=== PATIENT | female | born 1990 | race Caucasian/White ===

== ENCOUNTER 2021-09-29 07:51 | Emergency (ER) | payer OTHER ==
[~2021-09-29] VITALS: Ht 172.7 cm; Wt 59.0 kg
[~2021-09-29 07:51] MED LIST: BIRTH CONTROL PATCH; BIRTH CONTROL PILLS; HYDACE5 PO; ONDA8ODT MM; OXYACE5T PO; POLY500; PREN-16 PO
[2021-09-29 08:23] LABS: Source, Urine Clean Catch
[2021-09-29 08:26] LABS: BASOPHILS ABSOLUTE AUTO 0.02 K/mm3 (0.00-0.23); BASOPHILS PERCENT AUTO 0 % (0-2); EOSINOPHILS ABSOLUTE AUTO 0.05 K/mm3 (0.00-0.68); EOSINOPHILS PERCENT AUTO 1 % (0-6); Hematocrit 43.6 % (33.0-51.0); Hemoglobin 15.1 g/dL (11.5-16.0); IMMATURE GRAN ABSOLUTE AUTO 0.01 K/mm3 (0.00-0.10); IMMATURE GRAN PERCENT AUTO 0 % (0-1); LYMPHOCYTES ABSOLUTE AUTO 1.41 K/mm3 (0.84-5.20); LYMPHOCYTES PERCENT AUTO 22 % (21-46); MONOCYTES ABSOLUTE AUTO 0.35 K/mm3 (0.16-1.47); MONOCYTES PERCENT AUTO 5 % (4-13); Mean Corpuscular HGB 31.6 pg (26.0-34.0); Mean Corpuscular HGB Conc 34.6 g/dL (31.5-36.5); Mean Corpuscular Volume 91 fL (80-100); Mean Platelet Volume 10.3 fL (9.1-12.4); NEUTROPHILS ABSOLUTE AUTO 4.64 K/mm3 (1.96-9.15); NEUTROPHILS PERCENT AUTO 72 % (41-73); Platelet Count 196 K/mm3 (150-400); RDW Coefficient Variation 11.4 % (11.7-14.2); RDW Standard Deviation 38.4 fL (35.1-46.3); Red Blood Cell Count 4.78 M/mm3 (3.80-5.20); White Blood Cell Count 6.48 K/mm3 (4.00-11.30)
[2021-09-29 08:31] LABS: Appearance, Urine Clear (Clear); Bilirubin, Urine Neg (Neg); Blood, Urine Neg (Neg); Color, Urine Yellow (P-Yellow); Glucose Qualitative, Urine Neg (Neg); Ketones, Urine Neg (Neg); Leukocyte Esterase, Urine Neg (Neg); Nitrite, Urine Neg (Neg); Protein, Urine Neg (Neg); Urobilinogen, Urine NORM (Normal)
[2021-09-29 09:16] LABS: Alanine Aminotransfer (ALT/SGP 36 U/L (12-78); Albumin, Blood 4.5 g/dL (3.4-5.0); Albumin/Globulin Ratio 1.4 (0.8-1.8); Alk Phos 50 U/L (50-136); Anion Gap 7 mmol/L (6-16); Aspartate Aminotrans (AST/SGOT 16 U/L (12-37); Bilirubin, Total 0.7 mg/dL (0.1-1.0); Blood Urea Nitrogen 10 mg/dL (8-24); Bun/Creatinine Ratio 15.4 (12.0-20.0); CO2, Blood 25 mmol/L (21-32); Calcium, Blood 9.4 mg/dL (8.5-10.1); Chloride, Blood 105 mmol/L (98-108); Creatinine, Blood 0.65 mg/dL (0.40-1.00); Globulin, Blood 3.2 g/dL (2.2-4.0); Glomerular Filtration Rate >60 (60-); Glucose, Blood 106 mg/dL (70-99); Potassium, Blood 3.3 mmol/L (3.5-5.5); Sodium, Blood 137 mmol/L (136-145); Total Protein, Blood 7.7 g/dL (6.4-8.2)
== END 2021-09-29 13:12 | disposition home or self-care (01) ==
LOC: ER 07:51
PROVIDERS: Emergency Medicine
DX: N83.11 Corpus luteum cyst of right ovary (principal)
CPT/HCPCS: 36415; 74177; 80053; 81003; 81025; 83690; 85025; 96374-59; 96375; 99284-25; J1885; J2405; Q9967

== ENCOUNTER 2023-12-27 06:48 | Day surgery (SDC) | payer OTHER ==
[2023-12-27] VITALS (15 sets, daily range): BP systolic 107–128; BP diastolic 59–87
[~2023-12-27] VITALS: Ht 172.7 cm; Wt 57.4 kg
[~2023-12-27 06:48] MED LIST changes: +FentaNYL Citrate 50 MCG/ML 2 ML Injection ONE; +MULVITA PO; +Rocuronium Bromide 10 MG/ML 5ML Injection IV ONE; +VITAMIN D310 MC4 PO; +propofoL 20 ML IV ONE
--- NOTE | 2023-12-27 07:36 | NUR ---
Ambulatory in Day Surgery. History, Chart, Medications and Allergies reviewed before start of procedure.Patient confirms NPO status and agrees with scheduled surgery. Patient reports completing Chlorhexadine shower X2 prior to admission to hospital.
[2023-12-27] MEDS ORDERED: Lactated Ringer's 1,000 ML IV SCH ×2 (07:40→12:30)
[2023-12-27] MEDS ORDERED: Bupivacaine 0.5% HCl 5 MG/ML 30MLVIAL ONE (07:45)
[2023-12-27] MEDS ORDERED: Midazolam HCl 1MG / ML 2ML Vial IV ONE (08:00)
[2023-12-27] MEDS ORDERED: Cefazolin 2000MG/Dextrose,ISO 50 ML IV PRN (08:00)
[2023-12-27] MEDS ORDERED: Dexamethasone Sod Phos 10 MG/ML 1ML VIAL ONE (08:25)
[2023-12-27] MEDS ORDERED: Ondansetron HCl 2 MG / ML 2ML Vial ONE (08:25)
[2023-12-27] MEDS ORDERED: Rocuronium Bromide 10 MG/ML 5ML Injection IV ONE ×3 (08:45→11:10)
[2023-12-27] MEDS ORDERED: Glycopyrrolate 0.2 MG/ML 5ML VIAL ONE (08:49)
[2023-12-27] MEDS ORDERED: FentaNYL Citrate 50 MCG/ML 2 ML Injection IV PRN ×2 (08:55)
[2023-12-27] MEDS ORDERED: Metoclopramide HCl 5MG / ML 2ML Vial IV PRN (09:00)
[2023-12-27] MEDS ORDERED: HYDROmorphone HCl/Pf 1MG SYR IV PRN ×2 (09:00→12:25)
[2023-12-27] MEDS ORDERED: Ondansetron HCl 2 MG / ML 2ML Vial IV PRN ×2 (09:00→12:30)
[2023-12-27] MEDS ORDERED: Sugammadex Sodium 200 MG/2ML SDV (100 MG/ML) ONE (10:34)
[2023-12-27] MEDS ORDERED: Flumazenil 0.1 MG / ML 5ML Vial ONE (11:56)
[2023-12-27] MEDS ORDERED: HYDROmorphone HCl/Pf 1MG SYR ONE ×2 (12:13→12:29)
[2023-12-27] MEDS ORDERED: Promethazine HCl 12.5 MG Supp PR PRN (12:25)
[2023-12-27] MEDS ORDERED: Simethicone 80 MG Chew PO PRN (12:25)
[2023-12-27] MEDS ORDERED: FLU VACC QS2023-24(6MOS UP)/PF 60 MCG/0.5 ML SYRINGE IM SCH (12:25)
[2023-12-27] MEDS ORDERED: OxyCODONE 5 mg/Acetamin 325 mg TABLET PO PRN (12:25)
[2023-12-27] MEDS ORDERED: Promethazine HCl 25 MG Tab PO PRN (12:30)
[2023-12-27] MEDS ORDERED: Naloxone HCl 0.4MG / ML 1ML Vial IV PRN (12:30)
[2023-12-27] MEDS ORDERED: Ibuprofen 400 MG Tab PO PRN (12:30)
[2023-12-27] MEDS ORDERED: Ondansetron 4 MG TAB PO PRN (12:30)
[2023-12-27] MEDS ORDERED: CeFAZolin Sodium 2,000 MG in NS 50 ML IV SCH (14:15)
[2023-12-27] MEDS ORDERED: Ketorolac Tromethamine 30mg Vial IV SCH (18:00)
--- NOTE | 2023-12-27 19:30 | NUR ---
SHIFT SUMMARY PODO PRASANNA LAP HYSTER, A/OX4, VSS, TOLERATING PO, [facility] REMOVED ORDERED, CT PERFORMED ORDERED, PT PAIN HAS IMPROVED T/O THE SHIFT, TOLERATING CLEARS, VOIDING WELL. NO ACUTE EVENTS SINCE ARRIVING TO THE FLOOR. CALL LIGHT IN REACH.
--- NOTE | 2023-12-28 04:42 | NUR ---
SHIFT SUMMARY POD 1 LAP HYSTR c CERVIX & BILAT OVARY/FALLOPIAN REMOVAL, LYSIS OF ADHESIONS. NO ACUTE CHANGES OVERNIGHT. VS WNL FOR PT. TOLERATING CLEARS. AMBULATES SBA R/T LINES. TOILETS INDEPENDENTLY; SANGUINEOUS DRAINAGE ON HERRERA PADS (CHANGED 2X THIS SHIFT), VAGINAL PACKING IN PLACE. PT REPORTS NO PASSING OF FLATUS/ BM THIS SHIFT. PT REPORTS PAIN TOLERABLE, MEDICATED PER EMAR & NON-PHARM INTERVENTIONS IN USE. ANTICIPATED DISCHARGE LATER TODAY. CALL LIGHT WITHIN REACH, BED IN LOWEST POSITION, WILL REPORT TO DAY RN.
[2023-12-28 04:48] VITALS: BP 105/70
[2023-12-28 07:02] LABS: BASOPHILS ABSOLUTE AUTO 0.01 K/mm3 (0.00-0.23); BASOPHILS PERCENT AUTO 0 % (0-2); EOSINOPHILS ABSOLUTE AUTO 0.01 K/mm3 (0.00-0.68); EOSINOPHILS PERCENT AUTO 0 % (0-6); Hematocrit 36.5 % (33.0-51.0); Hemoglobin 12.7 g/dL (11.5-16.0); IMMATURE GRAN ABSOLUTE AUTO 0.02 K/mm3 (0.00-0.10); IMMATURE GRAN PERCENT AUTO 0 % (0-1); LYMPHOCYTES ABSOLUTE AUTO 1.37 K/mm3 (0.84-5.20); LYMPHOCYTES PERCENT AUTO 16 % (21-46); MONOCYTES ABSOLUTE AUTO 0.65 K/mm3 (0.16-1.47); MONOCYTES PERCENT AUTO 8 % (4-13); Mean Corpuscular HGB 31.9 pg (26.0-34.0); Mean Corpuscular HGB Conc 34.8 g/dL (31.5-36.5); Mean Corpuscular Volume 92 fL (80-100); Mean Platelet Volume 10.5 fL (9.1-12.4); NEUTROPHILS ABSOLUTE AUTO 6.54 K/mm3 (1.96-9.15); NEUTROPHILS PERCENT AUTO 76 % (41-73); Platelet Count 147 K/mm3 (150-400); RDW Coefficient Variation 11.7 % (11.7-14.2); RDW Standard Deviation 39.3 fL (35.1-46.3); Red Blood Cell Count 3.98 M/mm3 (3.80-5.20)
[2023-12-28 07:29] VITALS: BP 118/69
[2023-12-28 07:33] LABS: Albumin, Blood 3.2 g/dL (3.4-5.0); Albumin/Globulin Ratio 1.3 (0.8-1.8); Bun/Creatinine Ratio 11.7 (12.0-20.0); Calcium, Blood 8.3 mg/dL (8.5-10.1); Creatinine, Blood 0.6 mg/dL (0.40-1.00); Globulin, Blood 2.4 g/dL (2.2-4.0); Potassium, Blood 3.9 mmol/L (3.5-5.5); Total Protein, Blood 5.6 g/dL (6.4-8.2)
[2023-12-28 14:24] VITALS: BP 120/79
--- NOTE | 2023-12-28 15:05 | NUR ---
NOTE: PATIENT STARTED ON PO CONTRAST AT 1500 PER ORDER [address] SCHEDULED CT TO ABDOMEN AT 1600'S.
[2023-12-28] MEDS ORDERED: IBUP800 PO (17:03)
[2023-12-28] MEDS ORDERED: ERGO400 PO (17:03)
[2023-12-28] MEDS ORDERED: Percocet 5-3251 EACH PO (17:04)
[2023-12-28] MEDS ORDERED: PROM12.5S PR (17:05)
[2023-12-28] MEDS ORDERED: SIME80CH PO (17:06)
--- NOTE | 2023-12-28 17:52 | NUR ---
SHIFT/DISCHARGE SUMMARY: PATIENT A/OX4, CALM, PLEASANT AND COOPERATIVE c CARE. PATIENT DAY 1 S/P ROBOT TOTAL LAP HYSTER. PATIENT HAS 4 SMALL INCISION ACROSS ABDOMEN, c NO DRAINAIGE NOTED. PATIENT REPORTS PAIN 5/10 TO R SIDE ABDOMEN/[place], MEDICATED c PRN PAIN MEDS c GOOD EFFECT. PATIENT DENIES CP/PRESSURE, N/V, SOB AND DIZZINESS. PATIENT IS CONTINENCE OF BLADDER c SCANT DRAINAIGE IN HERRERA PADS. PATIENT HAD CT TO ABDOMEN c CONTRAST THIS PM. PIV TO R FOREARM/WRIST DC'D. PATIENT DISCHARGE HOME. DISCHARGE INSTRUCTIONS PACKET GIVEN TO PATIENT. EDUCATE PATIENT REGARDING TOTAL LAP HYSTER S/P INCISION CARE, BOWEL CARE REGIMEN, SELF CARE, NEW PRESCRIBED MEDS AND TO F/U c DR. MEEHAN (OBGYN) WITHIN 1-2 WEKS. PATIENT VERBALIZED UNDERSTANDING AND NO FURTHER QUESTIONS. RX WAS ELECTRONICALLY SENT BY DR. MEEHAN TO PATIENT PREFERRED PHARMACY. ALL PATIENT PERSONAL BELONGINGS WERE SENT HOME c THE PATIENT. PATIENT LEFT THE ROOM AT 1736 AND WAS TRANSPORTED VIA WHEELCHAIR BY [facility] STAFF, BERNA Mark TO PATIENT ENTRANCE.
== END 2023-12-28 17:53 | disposition home or self-care (01) ==
LOC: ORSCMMR 06:48 → ORD 08:00 → ORSCMMR 08:00 → SURS 13:14 → ORSCMMR 12-28 17:53 → ORD 02-21 08:00
PROVIDERS: Obstetrics & Gynecology
PROC: 0UT7FZZ Resection of Bilateral Fallopian Tubes, Via Natural or Artificial Opening With Percutaneous Endoscopic Assistance (ICD-10-PCS; principal; 2023-12-27 08:00)
PROC: 0UT9FZZ Resection of Uterus, Via Natural or Artificial Opening With Percutaneous Endoscopic Assistance (ICD-10-PCS; principal; 2023-12-27 08:00)
PROC: 0UT1FZZ Resection of Left Ovary, Via Natural or Artificial Opening With Percutaneous Endoscopic Assistance (ICD-10-PCS; principal; 2023-12-27 08:00)
PROC: 0WJP4ZZ Inspection of Gastrointestinal Tract, Percutaneous Endoscopic Approach (ICD-10-PCS; principal; 2023-12-27 08:00)
PROC: 8E0W4CZ Robotic Assisted Procedure of Trunk Region, Percutaneous Endoscopic Approach (ICD-10-PCS; principal; 2023-12-27 08:00)
PROC: 0UBF4ZX Excision of Cul-de-sac, Percutaneous Endoscopic Approach, Diagnostic (ICD-10-PCS; principal; 2023-12-27 08:00)
DX: N80.329 Endometriosis of the posterior cul-de-sac, unspecified depth (principal); N83.292 Other ovarian cyst, left side; N92.1 Excessive and frequent menstruation with irregular cycle; N94.6 Dysmenorrhea, unspecified; N94.10 Unspecified dyspareunia; R10.2 Pelvic and perineal pain; N73.6 Female pelvic peritoneal adhesions (postinfective)
CPT/HCPCS: 36415; 74018; 74177; 80053; 83690; 85025; 86850; 86900; 86901; 88305; 88307; A9270; J0690; J1100; J1170; J1885; J2250; J2405; J2704; J3010; J7120; Q9967

== ENCOUNTER → 2025-03-31 | Outpatient (CLI) | payer OTHER ==
[~2025-03-31] MED LIST changes: +ERGO400 PO; -FentaNYL Citrate 50 MCG/ML 2 ML Injection ONE; +IBUP800 PO; +PROM12.5S PR; +Percocet 5-3251 EACH PO; -Rocuronium Bromide 10 MG/ML 5ML Injection IV ONE; +SIME80CH PO; -propofoL 20 ML IV ONE
[2025-03-31 16:46] LABS: Bacterial Vaginosis PCR Negative (NEGATIVE); Candida Group, PCR NOT DETECTED (NOT DETECT); Candida glabrata-krusei, PCR NOT DETECTED (NOT DETECT)
== END | disposition home or self-care (01) ==
LOC: LAB SHORT 13:50 → LAB 13:50
PROVIDERS: Obstetrics & Gynecology
DX: N76.0 Acute vaginitis (principal)
CPT/HCPCS: 81515